=== PATIENT | female | born 2000 | race African-American/Black ===

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

== ENCOUNTER 2018-04-25 12:35 | Emergency (ER) | payer MEDICAID, OTHER ==
[~2018-04-25] VITALS: Ht 170.2 cm; Wt 98.3 kg
[2018-04-25 13:32] LABS: BACTERIA,URINE MOD /HPF (0-FEW); BILIRUBIN,URINE NEG (NEG); CLARITY,URINE TURBID; COLOR,URINE YELLOW; GLUCOSE,URINE NEG (NEG); NITRITE,URINE NEG (NEG); SQUAMOUS EPITHELIAL CELL,UR FEW /LPF; UROBILINOGEN,URINE 1 mg/dL (0.2 mg/dL); WBC,URINE >40 /HPF (0-4)
[2018-04-25] MEDS ORDERED: CIPR250T30 PO (13:45)
[2018-04-25] MEDS ORDERED: PHEN100T82 PO (13:45)
--- NOTE | 2018-04-25 13:45 | PHYS DOC ---
Past History Past Medical History: Anxiety Past Surgical History: No Surgical History Smoking: Non-smoker Alcohol Use: None Drug Use: None Adult General Chief Complaint Chief Complaint: ABDOMINAL PAIN HPI HPI Patient is a 17 year old female who presents with comparing of lower abdominal pain and urinary frequency since this morning. Patient said the pain is a constant discomfort feeling and radiated to her back and rated her pain moderate. Patient complaining of urinary frequency and dysuria and nausea. Patient denies fever and chills, vaginal bleeding or discharge, history of STD. Patient had new sexual partner for the last 3 weeks and currently using condoms and control. Review of Systems Review of Systems Constitutional: Denies fever or chills [] Eyes: Denies change in visual acuity, redness, or eye pain [] HENT: Denies nasal congestion or sore throat [] Respiratory: Denies cough or shortness of breath [] Cardiovascular: No additional information not addressed in HPI [] GI: Reports abdominal pain, nausea, denies vomiting, bloody stools or diarrhea [ ] : Reports dysuria and urinary frequency Musculoskeletal: Denies back pain or joint pain [] Integument: Denies rash or skin lesions [] Neurologic: Denies headache, focal weakness or sensory changes [] Endocrine: Denies polyuria or polydipsia [] All other systems were reviewed and found to be within normal limits, except as documented in this note. Allergies Allergies Allergies Uncoded Allergies Type Severity Reaction Last Updated Verified seafood Allergy Unknown 04/25/18 Physical Exam Physical Exam Constitutional: Well developed, well nourished, no acute distress, non-toxic appearance. [] HENT: Normocephalic, atraumatic Eyes: PERRLA, EOMI, conjunctiva normal, no discharge. [] Neck: Normal range of motion, no tenderness, supple, no stridor. [] Cardiovascular:Heart rate regular rhythm, no murmur [] Lungs & Thorax: Bilateral breath sounds clear to auscultation [] Abdomen: Bowel sounds normal, soft, no tenderness, no masses, no pulsatile masses. [] Skin: Warm, dry, no erythema, no rash. [] Back: No tenderness, no CVA tenderness. [] Extremities: No tenderness, no cyanosis, no clubbing, ROM intact, no edema. [] Neurologic: Alert and oriented X 3, normal motor function, normal sensory function, no focal deficits noted. [] Psychologic: Affect normal, judgement normal, mood normal. [] Current Patient Data Lab Results Laboratory Tests Test 04/25/18 12:17 04/25/18 13:00 POC Urine HCG, Qualitative hcg negative (Negative) Urine Collection Type Void Urine Color Yellow Urine Clarity Turbid Urine pH 7.5 Urine Specific [place] 1.020 Urine Protein 100 mg/dl (NEG-TRACE) Urine Glucose (UA) Neg mg/dL (NEG) Urine Ketones (Stick) Neg mg/dL (NEG) Urine Blood Mod (NEG) Urine Nitrite Neg (NEG) Urine Bilirubin Neg (NEG) Urine Urobilinogen Dipstick 1 mg/dL (0.2 mg/dL) Urine Leukocyte Esterase Large (NEG) Urine RBC 11-20 /HPF (0-2) Urine WBC >40 /HPF (0-4) Urine Squamous Epithelial Cells Few /LPF Urine Bacteria Mod /HPF (0-FEW) EKG EKG [] Radiology/Procedures Radiology/Procedures [] Course & Med Decision Making Course & Med Decision Making Pertinent Labs reviewed. (See chart for details) Evaluation of patient in ER showed 17-year-old male patient with complaining of lower abdominal pain and urinary frequency and dysuria. Patient had unremarkable physical exam. UA showed more than 40 WBC and 10 RBC urine. She didn't want to have pain medication in ER. Plan discharge patient home to diagnose of UTI. [] Dragon Disclaimer Dragon Disclaimer This electronic medical record was generated, in whole or in part, using a voice recognition dictation system. Departure Departure: Impression: Primary Impression: Hemorrhagic cystitis Disposition: HOME, SELF-CARE (@1342) Condition: STABLE Referrals: PCP,NO (PCP) Patient Instructions: Urinary Tract Infection Additional Instructions: Drink plenty of liquids Follow-up with your primary care physician in 3-5 days Return to ER if not getting better Scripts Phenazopyridine Hcl (PYRIDIUM) 100 Mg Tablet 100 MG PO BID, #10 TAB Prov: JASPER GARDNER MD 04/25/18 Ciprofloxacin Hcl (CIPRO) 250 Mg Tablet 1 TAB PO BID, #14 TAB Prov: JASPER GARDNER MD 04/25/18 JASPER GARDNER MD Apr 25, 2018 13:45
[2018-04-25 13:54] VITALS: BP 134/89
== END 2018-04-25 13:56 | disposition home or self-care (01) ==
LOC: ER 12:35
DX: N30.80 Other cystitis without hematuria (principal); F41.9 Anxiety disorder, unspecified; Z91.013 Allergy to seafood
CPT/HCPCS: 81001; 81025; 87086; 99284

== ENCOUNTER 2019-01-10 08:27 | Emergency (ER) | payer SELFPAY ==
[~2019-01-10] VITALS: Ht 170.2 cm; Wt 97.3 kg
[~2019-01-10 08:27] MED LIST: CIPR250T30 PO; PHEN100T82 PO
--- NOTE | 2019-01-10 09:12 | PHYS DOC ---
Past History Past Medical History: No Pertinent History Past Surgical History: No Surgical History Smoking: Non-smoker Alcohol Use: None Drug Use: None Adult General Chief Complaint Chief Complaint: VAGINAL PROBLEM HPI HPI Patient is a 18-year-old female who presents with complaint of vaginal itching and white discharge that started approximately 4 days ago. She states that she is also getting a little bit of burning with urination. She denies any abdominal pain. She indicates that she is sexually active and has Implanon for control. Patient admits that she is concerned that she may have an STD. She denies any fever, nausea or vomiting.[] Review of Systems Review of Systems Constitutional: Denies fever or chills [] Respiratory: Denies cough or shortness of breath [] Cardiovascular: No additional information not addressed in HPI [] GI: Denies abdominal pain, nausea, vomiting or diarrhea [] : Complains of dysuria with vaginal discharge. [] Neurologic: Denies headache, focal weakness or sensory changes [] Allergies Allergies Allergies Uncoded Allergies Type Severity Reaction Last Updated Verified seafood Allergy Unknown 04/25/18 Physical Exam Physical Exam Constitutional: Well developed, well nourished, no acute distress, non-toxic appearance. [] Neck: Normal range of motion, no tenderness, supple, no stridor. [] Cardiovascular:Heart rate regular rhythm, no murmur [] Lungs & Thorax: Bilateral breath sounds clear to auscultation [] Abdomen: Bowel sounds normal, soft, no tenderness. [] : Warm, dry, no erythema, no rash. [] Current Patient Data Vital Signs Vital Signs Date Time Temp Pulse Resp B/P (MAP) Pulse Ox O2 Delivery O2 Flow Rate FiO2 01/10/19 08:37 97.8 80 18 99 Room Air EKG EKG [] Radiology/Procedures Radiology/Procedures [] Course & Med Decision Making Course & Med Decision Making Pertinent Labs and Imaging studies reviewed. (See chart for details) [] Dragon Disclaimer Dragon Disclaimer This electronic medical record was generated, in whole or in part, using a voice recognition dictation system. Departure Departure: Impression: Primary Impression: Bacterial vaginosis Disposition: HOME, SELF-CARE Condition: STABLE Referrals: PCP,NO (PCP) Patient Instructions: Bacterial Vaginosis Scripts Metronidazole (FLAGYL) 500 Mg Tablet 1 TAB PO BID for infection, #14 TAB Prov: JERONIMO SMART Jr. DO 01/10/19 JERONIMO SMART Jr. DO January 10, 2019 09:12
[2019-01-10] MEDS ORDERED: cefTRIAXone IM 250 MG VIAL IM ONE (09:15)
[2019-01-10] MEDS ORDERED: AZITHROMYCIN 250 MG TABLET. PO ONE (09:15)
[2019-01-10 09:17] LABS: BACTERIA,URINE MOD /HPF (0-FEW); BILIRUBIN,URINE NEG (NEG); CLARITY,URINE HAZY; COLOR,URINE YELLOW; GLUCOSE,URINE NEG (NEG); NITRITE,URINE NEG (NEG); RBC,URINE RARE /HPF (0-2); UROBILINOGEN,URINE 0.2 mg/dL (0.2 mg/dL)
[2019-01-10 09:18] LABS: SQUAMOUS EPITHELIAL CELL,UR MOD /LPF
[2019-01-10] MEDS ORDERED: METR500T PO (09:38)
[2019-01-10 09:44] VITALS: BP 120/79
[2019-01-11 21:06] LABS: CHLAMYDIA PROBE Positive (Negative)
== END 2019-01-10 09:44 | disposition home or self-care (01) ==
LOC: ER 08:27
DX: N76.0 Acute vaginitis (principal); B96.89 Other specified bacterial agents as the cause of diseases classified elsewhere; Z91.013 Allergy to seafood
CPT/HCPCS: 36415; 81001; 81025; 87086; 87491; 87591; 96372; 99284; J0456; J0696; Q0111